=== PATIENT | male | born 1990 | race Two or more races ===

== ENCOUNTER 2017-04-16 20:38 | Emergency (ER) | payer BC ==
[~2017-04-16] VITALS: Ht 172.7 cm; Wt 88.5 kg
[2017-04-16 21:07] VITALS: BP 142/78
[2017-04-16] MEDS ORDERED: DOXY100C2 PO (21:13)
--- NOTE | 2017-04-16 21:13 | PHYS DOC ---
Past Medical History Past Medical History: No Pertinent History Past Surgical History: No Surgical History Adult General Chief Complaint Chief Complaint: EARACHE/EAR PAIN HPI HPI Patient is a 26 year old male presents to the emergency department with left ear pain left frontal and maxillary sinus pressure with sore throat and right lymph node enlargement. Patient states this started last week. His been taken ibuprofen [id number] for the pain and discomfort with minimal relief. Denies fever, chills nausea vomiting. Review of Systems Review of Systems Constitutional: Denies fever or chills [] Eyes: Denies change in visual acuity, redness, or eye pain [] HENT: Denies nasal congestion complaint of left frontal and maxillary sinus pressure, left ear pain, sore throat. Respiratory: Denies cough or shortness of breath [] Cardiovascular: No additional information not addressed in HPI [] GI: Denies abdominal pain, nausea, vomiting, bloody stools or diarrhea [] : Denies dysuria or hematuria [] Musculoskeletal: Denies back pain or joint pain [] Integument: Denies rash or skin lesions [] Neurologic: Denies headache, focal weakness or sensory changes [] Endocrine: Denies polyuria or polydipsia [] Physical Exam Physical Exam Constitutional: Well developed, well nourished, no acute distress, non-toxic appearance. [] HENT: Normocephalic, atraumatic, bilateral external ears normal, oropharynx moist, no oral exudates, nose normal. Right tympanic membrane is normal left tympanic membrane slightly pink. Throat with no erythematous no exudate no drainage noted. Patient with left frontal and maxillary sinus tenderness. Patient with right lymph node enlargement. Eyes: PERRLA, EOMI, conjunctiva normal, no discharge. [] Neck: Normal range of motion, no tenderness, supple, no stridor. [] Cardiovascular:Heart rate regular rhythm, no murmur [] Lungs & Thorax: Bilateral breath sounds clear to auscultation [] Skin: Warm, dry, no erythema, no rash. [] Back: No tenderness Extremities: No tenderness, no cyanosis, no clubbing, ROM intact, no edema. [] Neurologic: Alert and oriented X 3, normal motor function, normal sensory function, no focal deficits noted. [] Psychologic: Affect normal, judgement normal, mood normal. [] EKG EKG [] Radiology/Procedures Radiology/Procedures [] Course & Med Decision Making Course & Med Decision Making Pertinent Labs and Imaging studies reviewed. (See chart for details) Patient will be discharged home with recommendations to drink plenty of fluids. Recommended Sudafed [id number] as well as Mucinex DM. He'll be provided with a prescription for doxycycline for sinusitis infection. Patient will be discharged home in stable condition signs symptoms to return back to emergency department as been provided. Patient agrees with discharge instructions, treatment regimens and follow-up recommendations. All questions have been answered at patient's bedside. [] Dragon Disclaimer Dragon Disclaimer This electronic medical record was generated, in whole or in part, using a voice recognition dictation system. Departure Departure Impression: Primary Impression: Sinusitis, acute Disposition: 01 HOME, SELF-CARE Condition: STABLE Patient Instructions: Sinusitis, [id number] Additional Instructions: Activity as tolerated Medication as prescribed Sudafed as directed by manufacture Mucinex DM as prescribed by manufacture Drink plenty of fluids Followup with primary care provider in 7-10 days Return to emergency department as needed for signs and symptoms that become worse. Scripts Doxycycline Hyclate (DOXYCYCLINE HYCLATE) 100 Mg Capsule 1 CAP PO BID, #20 CAP Prov: ELEAZAR MANTILLA APRN 04/16/17 ELEAZAR MANTILLA APRN Apr 16, 2017 21:13
== END 2017-04-16 21:25 | disposition home or self-care (01) ==
LOC: ER 20:38
DX: J01.90 Acute sinusitis, unspecified (principal)
CPT/HCPCS: 99283